=== PATIENT | female | born 1960 | race Caucasian/White ===

== ENCOUNTER 2022-08-02 19:36 | Emergency (ER) | payer OTHER ==
[~2022-08-02] VITALS: Ht 152.4 cm; Wt 82.6 kg
[2022-08-02 19:42] VITALS: BP 134/77
--- NOTE | 2022-08-02 19:48 | NUR ---
PT TAKEN TO BED 6
--- NOTE | 2022-08-02 20:03 | NUR ---
NENITA VELASQUEZ AT BEDSIDE EXAMINING PT.
[2022-08-02] MEDS ORDERED: ONDANSETRON 4 MG ODT PO ONE (20:05)
[2022-08-02] MEDS ORDERED: MORPHINE SULFATE 4 MG/ML SYR IM ONE (20:05)
--- NOTE | 2022-08-02 20:12 | NUR ---
X-Ray at bedside.
[2022-08-02] MEDS ORDERED: PROPOFOL 200 MG/20 ML VIAL IV ONE (20:25)
--- NOTE | 2022-08-02 20:37 | NUR ---
61 YO F BIB WITH C/C OF 05/27 RT SHOULD PAIN S/P FALL X 1.5 HOURS AGO. PT STATES SHE WAS WALKING AND FELL INTO A HOLE, STATES ALL HER WEIGHT LANDED ON RIGHT SHOULDER. DENIES HEAD INJURY. DENIES TAKING MEDICATION FOR PAIN. DENIES HX, RX AND ALLERGIES
--- NOTE | 2022-08-02 20:55 | NUR ---
RT PAGED FOR CONSCIOUS SEDATION
--- NOTE | 2022-08-02 20:56 | NUR ---
Respiratory Therapist at bedside for respiratory intervention.
--- NOTE | 2022-08-02 20:58 | NUR ---
TIMEOUT BY DR. DENNY
--- NOTE | 2022-08-02 20:58 | NUR ---
Dr. Gongora examining patient.
--- NOTE | 2022-08-02 21:00 | NUR ---
AT BEDSIDE WITH PATIENT FOR CONSCIOUS SEDATION FOR 20 MINS. PATIENT DESATED DURING SEDATION TO 88% AND PATIENT WAS PUT ON 6L. WILL CONTINUE TO MONITOR PATIENT AND TITRATE PATIENT WAKES UP.
[2022-08-02] MEDS ORDERED: KETAMINE 500 MG/5 ML VIAL ONE (21:09)
--- NOTE | 2022-08-02 21:10 | NUR ---
DR.DELA KAUR GAVE VERBAL ORDER FOR KETAMINE 500MG/5ML, 80MG ADMIN BY NENITA VELASQUEZ DURING PROCEDURE.
--- NOTE | 2022-08-02 21:15 | NUR ---
X-Ray at bedside.
[2022-08-02] MEDS ORDERED: IBUP-2213 PO (21:24)
[2022-08-02] MEDS ORDERED: LID5T TP (21:24)
[2022-08-02] MEDS ORDERED: ONDA-188 PO (21:24)
[2022-08-02] MEDS ORDERED: TRAM50TA3 PO (21:24)
--- NOTE | 2022-08-02 21:24 | NUR ---
sling applied to r shoulder
--- NOTE | 2022-08-02 21:30 | NUR ---
DAUGHTER AT BEDSIDE.
--- NOTE | 2022-08-02 21:32 | NUR ---
PT IS AWAKE AND ALERT, BACK AT BASELINE.
--- NOTE | 2022-08-02 21:44 | NUR ---
SEE MODERATE SEDATION FOR MORE INFO.
[2022-08-02] MEDS ORDERED: ONDANSETRON 4 MG/2 ML VIAL IVP ONE (22:00)
[2022-08-02 22:40] VITALS: BP 144/55
--- NOTE | 2022-08-02 22:40 | NUR ---
Patient discharged with v/s stable. Written and verbal after care instructions given and explained FOR DISLOACTED SHOULDER. Patient alert, oriented and verbalized understanding of instructions. Wheel Chair Assisted with to car. All questions addressed prior to discharge. ID band removed. Patient advised to follow up with PMD. Rx of IBUPROFEN, LIDODERM, ZOFRAN, AND TRAMADOL given. Patient educated on indication of medication including possible reaction and side effects. Opportunity to ask questions provided and answered.
== END 2022-08-02 22:40 | disposition home or self-care (01) ==
LOC: MED 19:36
DX: S43.004A Unspecified dislocation of right shoulder joint, initial encounter (principal); W18.30XA Fall on same level, unspecified, initial encounter; Y93.89 Activity, other specified; Y92.89 Other specified places as the place of occurrence of the external cause; Y99.8 Other external cause status
CPT/HCPCS: 23650; 73030; 73060; 94760; 94770; 96372; 96374; 99291; G0500; J2270; J2405; J2704; Q0092; Q0162